=== PATIENT | male | born 1995 ===

== ENCOUNTER 2018-01-14 05:26 | Emergency (ER) | payer BC ==
[2018-01-14] MEDS ORDERED: Ketorolac Tromethamine 60 MG/2 ML VIAL ONE (05:41)
== END 2018-01-14 06:00 | disposition home or self-care (01) ==
LOC: ERS 05:26
DX: K02.9 Dental caries, unspecified (principal); I10 Essential (primary) hypertension; J45.909 Unspecified asthma, uncomplicated
CPT/HCPCS: 96372; J1885

== ENCOUNTER 2022-04-17 02:40 | Emergency (ER) | payer BC, SELFPAY ==
[2022-04-17] MEDS ORDERED: Lidocaine 1% PF 5 ML VIAL ONE (03:20)
[2022-04-17] MEDS ORDERED: HYDROcodone/Acetaminophen 10/325 mg Tablet ONE (03:38)
[2022-04-17] MEDS ORDERED: Ketorolac Tromethamine 30 MG/ML VIAL ONE (05:49)
== END 2022-04-17 06:48 | disposition home or self-care (01) ==
LOC: ERS 02:40
DX: S01.83XA Puncture wound without foreign body of other part of head, initial encounter (principal); I10 Essential (primary) hypertension; W34.00XA Accidental discharge from unspecified firearms or gun, initial encounter
CPT/HCPCS: 36416; 70250; 70450; 96374; G0390; J1885

== ENCOUNTER 2023-01-16 08:22 | Emergency (ER) | payer SELFPAY | END 2023-01-16 09:49 | disposition left against medical advice (07) | LOC: ERS 08:22 | DX: Z53.21 Procedure and treatment not carried out due to patient leaving prior to being seen by health care provider (principal) ==